=== PATIENT | female | born 1990 | race Two or more races ===

== ENCOUNTER → 2016-08-12 | Outpatient (CLI) | payer OTHER ==
[~2016-08-12] VITALS: Ht 167.6 cm; Wt 63.5 kg
[~2016-08-12] MED LIST: SINCALIDE 1.27 MCG in IV NORMAL SALINE 50ML 30 ML IV ONE
--- NOTE | 2016-08-12 11:05 | RAD ---
Radionuclide hepatobiliary scan with gallbladder ejection fraction, 08/12/2016: History: Epigastric pain Following IV injection of 5.5 mCi of technetium 99m Choletec there was prompt uptake of the radionuclide from the blood stream by the liver. Activity is present in the bile ducts and gallbladder at 10 minutes. Small bowel activity develops at 35 minutes. Additional imaging of the gallbladder was then performed following IV injection of 1.3 mcg of cholecystokinin. There is good gallbladder emptying with the gallbladder ejection fraction calculated at 89%. IMPRESSION: 1. Normal radionuclide hepatobiliary scan. 2. The gallbladder ejection fraction is 89%.
== END | disposition home or self-care (01) ==
LOC: NM 08:09
PROVIDERS: ATTEND Internal Medicine Gastroenterology
DX: R10.13 Epigastric pain (principal); R11.0 Nausea
CPT/HCPCS: 78226; 96374; 96375; A9537; J2805

== ENCOUNTER → 2019-10-08 | Outpatient (CLI) | payer MEDICAID ==
[~2019-10-08] MED LIST changes: +CLONAZEPAM1 MG PO; -SINCALIDE 1.27 MCG in IV NORMAL SALINE 50ML 30 ML IV ONE
== END | disposition home or self-care (01) ==
LOC: LAB 13:26
PROVIDERS: ATTEND Obstetrics & Gynecology
DX: Z01.818 Encounter for other preprocedural examination (principal); Z11.59 Encounter for screening for other viral diseases
CPT/HCPCS: C9803; U0003; 36415

== ENCOUNTER 2019-10-11 07:55 | Observation (INO) | payer MEDICAID ==
[2019-10-11] VITALS (8 sets, daily range): BP systolic 90–107; BP diastolic 51–64
[~2019-10-11] VITALS: Ht 167.6 cm; Wt 66.0 kg
[~2019-10-11 07:55] MED LIST changes: -CLONAZEPAM1 MG PO; +HYDROmorphone 2 MG/ML VIAL IV PRN; +IV RINGERS,LACTATED 1000ML 1,000 ML IV SCH; +LIDOCAINE 1% PF 2 ML VIAL. ID PRN; +MORPHINE SULFATE 2 MG/ML VIAL. IV PRN; +ONDANSETRON PF 4 MG/2 ML VIAL. IV PRN; +PROCHLORPERAZINE 10 MG/2 ML VIAL. IV PRN; +ceFAZolin SODIUM IV Push 1 GM VIAL. IVP ONE; +fentaNYL PF VIAL 100 MCG/2 ML VIAL IV PRN
[2019-10-11] MEDS ORDERED: CLONAZEPAM1 MG PO (08:11)
[2019-10-11] MEDS ORDERED: MIDAZOLAM HCL/PF 2 MG/2 ML VIAL. ONE (08:52)
[2019-10-11] MEDS ORDERED: fentaNYL PF VIAL 100 MCG/2 ML VIAL ONE ×2 (08:52→10:22)
[2019-10-11] MEDS ORDERED: LIDOCAINE 2% PF 5 ML VIAL. ONE (08:52)
[2019-10-11] MEDS ORDERED: ONDANSETRON PF 4 MG/2 ML VIAL. ONE (08:52)
[2019-10-11] MEDS ORDERED: DEXAMETHASONE SOD PHOS 4 MG/ML VIAL ONE (08:52)
[2019-10-11] MEDS ORDERED: PROPOFOL 10 MG/ML (20ML) VIAL. IV ONE (08:52)
[2019-10-11] MEDS ORDERED: LIDOCAINE 1%/EPI 1:100,000 20 ML VIAL. ONE (09:08)
[2019-10-11] MEDS ORDERED: SEVOFLURANE 61 TO 120 MINUTES. IH ONE (09:52)
--- NOTE | 2019-10-11 10:21 | PDOC ---
BRIEF OPERATIVE NOTE Date: October 11, 2019 Pre-Op Diagnosis AMINA Post-Op Diagnosis Same Procedure Performed Suburethral Bladder Sling Surgeon Dr. Clark Knit Goods Washer Press Operator: Raj Anesthesia Type: General Blood Loss 15 ml Specimens Obtained none Findings AMINA Complications none Operative Note see dictation MATTHEW CLARK Jr, MD October 11, 2019 10:21
[2019-10-11] MEDS ORDERED: PROCHLORPERAZINE 10 MG/2 ML VIAL. ONE (10:22)
--- NOTE | 2019-10-11 10:24 | DISCH ---
DISCHARGE INSTRUCTIONS Condition on Discharge Condition on Discharge: Stable Activity After Discharge Activity Instructions for Disc: Activity as tolerated Lifting Instructions after Dis: No heavy lifting Driving Instructions after Dis: Do not drive today Diet after Discharge Diet after Discharge: Regular Contacting the DRPhylicia after DC Call your doctor for: Concerns you may have Follow-Up Follow up with: Dr. Clark in 1 week. MATTHEW CLARK Jr, MD October 11, 2019 10:24
[2019-10-11] MEDS: fentaNYL PF VIAL 100 MCG/2 ML VIAL IV PRN ×2 (10:26→10:39)
[2019-10-11] MEDS ORDERED: oxyCODONE/APAP 5/325 1 TAB TABLET PO PRN (10:30)
[2019-10-11] MEDS ORDERED: 0.9 % SODIUM CHLORIDE 10 ML DISP.SYRIN. IV PRN (10:30)
[2019-10-11] MEDS ORDERED: PROCHLORPERAZINE 10 MG/2 ML VIAL. IV PRN (10:30)
[2019-10-11] MEDS ORDERED: ZOLPIDEM 5 MG TABLET. PO PRN (10:30)
[2019-10-11] MEDS ORDERED: KETOROLAC 30 MG/ML VIAL. IV PRN (10:30)
[2019-10-11] MEDS ORDERED: diphenhydrAMINE 50 MG/ML VIAL IV PRN (10:30)
[2019-10-11] MEDS ORDERED: ONDANSETRON PF 4 MG/2 ML VIAL. IV PRN (10:30)
[2019-10-11] MEDS ORDERED: DEXTROSE 50% 25 GM / 50ML DISP.SYRIN. IV PRN (10:30)
[2019-10-11] MEDS ORDERED: diphenhydrAMINE HCL 25 MG CAPSULE PO PRN (10:30)
[2019-10-11] MEDS ORDERED: SIMETHICONE 80 MG TAB.CHEW PO PRN (10:30)
[2019-10-11] MEDS ORDERED: CALCIUM CARBONATE 500 MG TAB.CHEW PO PRN (10:30)
--- NOTE | 2019-10-11 11:06 | OP ---
DATE OF SURGERY: PREOPERATIVE DIAGNOSIS: Stress urinary incontinence. POSTOPERATIVE DIAGNOSIS: Stress urinary incontinence. PROCEDURE: Suburethral bladder sling. SURGEON: Matthew Hendrickson MD OFFSET PRESS OPERATOR: Raj. ANESTHESIA: GETA. ESTIMATED BLOOD LOSS: 50 mL. FINDINGS: Stress urinary incontinence. SUMMARY: A 29-year-old with stress urinary incontinence diagnosed in clinic requiring suburethral bladder sling placement. The patient was counseled on the risks, benefits and expectations as well as the erosion risk and voiced clear understanding to proceed. DESCRIPTION OF PROCEDURE: The patient was taken to surgery suite and placed in dorsal lithotomy position. She was prepped with Betadine solution and draped in sterile fashion. After adequate anesthesia, weighted speculum was placed vaginally. The Allis clamp was placed 1 cm below the urethral orifice, second Allis clamp was placed 3 cm below the first Allis clamp on the anterior vaginal wall mucosa. 1% lidocaine with epinephrine was injected at the groin insertion points as well as in a vertical manner between the 2 Allis clamps in the periurethral space. Scalpel was utilized to make incisions in the groin region as well as a vertical incision between the 2 Allis clamps. The anterior vaginal mucosa was dissected away from the pubovesical fascia with Metzenbaum scissors. The periurethral space was further developed with Metzenbaum scissors as well as blunt dissection all the way to the obturator foramen bilaterally. The Obtryx was then placed through the left groin insertion site and passed through the obturator foramen and guided with my index finger out through the periurethral space. The mesh was then attached and the trocar was removed in opposite fashion. Same process took place with the right side. Cystoscopy was performed with a 30-degree scope in which the bladder cavity was normal. Both ureterovesical junctions were visualized and functioning normally. The cystoscope was removed. The mesh was adjusted with a size 7 Hegar dilator to a loose fit. The exposed mesh at the skin region was excised using Metzenbaum scissors. The anterior vaginal wall mucosa was reapproximated using 2-0 Vicryl suture in an interrupted fashion. The groin incisions were reapproximated using Dermabond. Issa catheter was placed with clear yellow urine. The patient tolerated the procedure well and was taken to the recovery room in stable condition. Sponge and needle count correct x 3. MATTHEW HENDRICKSON MD DR: JOLIE/kilo JOB#: [id number] / [id number]
[2019-10-11] MEDS ORDERED: GABAPENTIN 300 MG CAPSULE. PO SCH (12:00)
--- NOTE | 2019-10-11 15:20 | NUR ---
Bladder challenge completed with 300cc sterile water instilled into the bladder through the freeman port, tubing clamped and freeman removed. Pt immediately went to the bathroom and voided 300cc of clear yellow urine.. Will notify Dr. Clark of results.
--- NOTE | 2019-10-11 16:09 | NUR ---
Discharge and follow up instructions given to pt along with a RX for Percocet. Pt denied complaints or questions at time of D/C. Pt taken out of the hospital per W/C.
== END 2019-10-11 16:05 | disposition home or self-care (01) ==
LOC: SURG 07:55 → 3 NORTH 10:57
PROVIDERS: ADMIT Obstetrics & Gynecology; ATTEND Obstetrics & Gynecology
DX: N39.3 Stress incontinence (female) (male) (principal)
CPT/HCPCS: 57288; 81025; 96374; A7015; G0378; G0379; J0690; J0780; J1100; J1200; J2250; J2405; J2704; J3010; J3490; J7030; C1771

== ENCOUNTER → 2020-10-24 | Outpatient (CLI) | payer MEDICAID ==
[2019-10-11 16:06] VITALS: BP 96/51
[~2020-10-24] MED LIST changes: +CLONAZEPAM1 MG PO; -HYDROmorphone 2 MG/ML VIAL IV PRN; -IV RINGERS,LACTATED 1000ML 1,000 ML IV SCH; -LIDOCAINE 1% PF 2 ML VIAL. ID PRN; -MORPHINE SULFATE 2 MG/ML VIAL. IV PRN; -ONDANSETRON PF 4 MG/2 ML VIAL. IV PRN; -PROCHLORPERAZINE 10 MG/2 ML VIAL. IV PRN; -ceFAZolin SODIUM IV Push 1 GM VIAL. IVP ONE; -fentaNYL PF VIAL 100 MCG/2 ML VIAL IV PRN
--- NOTE | 2020-10-24 16:18 | RAD ---
INDICATION: Reason: Pelvic and Perineal Pain; Dyspareunia / Spl. Instructions: / History: COMPARISON: None. TECHNIQUE: Grayscale and color ultrasound images uterus and adnexa. FINDINGS: Uterus: 89 x 51 x 39 mm. Intrauterine device is seen. Right Ovary: 45 x 24 x 23 mm. Left Ovary: 29 x 20 x 15 mm. Vascular flow identified to bilateral ovaries. Vaginal canal region appears slightly echogenic. Nonspecific appearance but some fatty tissue within the area or calcifications can have this appearance. IMPRESSION: * Echogenic structure at the endometrial stripe. Could be from causes such as intrauterine device. * Vascular flow seen to the ovaries. Electronically signed by: Gonsalo Gibson MD (10/24/2020 4:15 PM) [id number]
== END ==
LOC: US 14:08
PROVIDERS: ATTEND Obstetrics & Gynecology
DX: N94.10 Unspecified dyspareunia (principal)
CPT/HCPCS: 76856

== ENCOUNTER 2020-12-04 07:41 | Day surgery (SDC) | payer MEDICAID ==
[~2020-12-04] VITALS: Ht 167.6 cm; Wt 61.0 kg
[~2020-12-04 07:41] MED LIST changes: +HYDROmorphone 2 MG/ML VIAL IVP PRN; +IV RINGERS,LACTATED 1000ML 1,000 ML IV SCH; +MORPHINE SULFATE 2 MG/ML INJ. IVP PRN; +PROCHLORPERAZINE 10 MG/2 ML VIAL. IVP PRN; +ceFAZolin SODIUM IV Push 1 GM VIAL. IVP PRN; +fentaNYL PF VIAL 100 MCG/2 ML VIAL IVP PRN
[2020-12-04 08:05] VITALS: BP 107/66
[2020-12-04] MEDS ORDERED: SCOPOLAMINE 1.5MG PATCH. TD ONE (08:30)
[2020-12-04] MEDS ORDERED: fentaNYL PF VIAL 100 MCG/2 ML VIAL ONE ×2 (08:53→10:12)
[2020-12-04] MEDS ORDERED: MIDAZOLAM HCL/PF 2 MG/2 ML VIAL. ONE (08:53)
[2020-12-04] MEDS ORDERED: LIDOCAINE 1%/EPI 1:100,000 20 ML VIAL. ONE (09:06)
[2020-12-04] MEDS ORDERED: FERRIC SUBSULFATE 8 ML SOL.W.APPL TP ONE (09:06)
[2020-12-04] MEDS ORDERED: DEXAMETHASONE SOD PHOS 4 MG/ML VIAL ONE (09:30)
[2020-12-04] MEDS ORDERED: KETOROLAC 30 MG/ML VIAL. ONE (09:30)
[2020-12-04] MEDS ORDERED: ONDANSETRON PF 4 MG/2 ML VIAL. ONE (09:30)
[2020-12-04] MEDS ORDERED: PROPOFOL 10 MG/ML (20ML) VIAL. IV ONE (09:30)
[2020-12-04] MEDS ORDERED: FAMOTIDINE 20 MG/2 ML VIAL ONE (09:30)
[2020-12-04] MEDS ORDERED: LIDOCAINE 2% PF 5 ML VIAL. ONE (09:30)
[2020-12-04] MEDS ORDERED: SEVOFLURANE 31 TO 60 MINUTES. IH ONE (09:30)
--- NOTE | 2020-12-04 09:44 | PDOC ---
BRIEF OPERATIVE NOTE Date: Dec 04, 2020 Pre-Op Diagnosis BRYN 3 Post-Op Diagnosis Same Procedure Performed Cervical Cone Biopsy Surgeon Dr. Clark Anesthesia Type: General Blood Loss 5 ml Specimens Obtained anterior and posterior lip of cervix Findings BRYN 3 Complications none Operative Note see dictation MATTHEW CLARK Jr, MD Dec 04, 2020 09:44
[2020-12-04] MEDS ORDERED: OXYC1TAB15 PO (09:46)
--- NOTE | 2020-12-04 09:47 | DISCH ---
DISCHARGE INSTRUCTIONS Condition on Discharge Condition on Discharge: Stable Activity After Discharge Activity Instructions for Disc: Activity as tolerated Lifting Instructions after Dis: No heavy lifting Driving Instructions after Dis: Do not drive today Diet after Discharge Diet after Discharge: Regular Contacting the DRPhylicia after DC Call your doctor for: Concerns you may have Follow-Up Follow up with: Dr. Clark in 1-2 weeks MATTHEW CLARK Jr, MD Dec 04, 2020 09:47
--- NOTE | 2020-12-04 10:08 | OP ---
DATE OF SURGERY: 12/04/2020 PREOPERATIVE DIAGNOSIS: Cervical intraepithelial neoplasia 3. POSTOPERATIVE DIAGNOSIS: Cervical intraepithelial neoplasia 3. PROCEDURE: Cervical cone biopsy. SURGEON: Chai Clark MD. ANESTHESIA: GETA. ESTIMATED BLOOD LOSS: 5 mL. COMPLICATIONS: None. FINDINGS: BRYN 3. SUMMARY: A 30-year-old female with BRYN 3 findings on colposcopic biopsy requiring cervical cone biopsy. She was counseled on the risks, benefits and expectations and voiced clear understanding to proceed. DESCRIPTION OF PROCEDURE: The patient was taken to surgery suite and placed in dorsal lithotomy position. She was prepped with Betadine solution and draped in sterile fashion. After adequate anesthesia, curved Loki and weighted speculum were placed. Anterior lip of the cervix grasped with single tooth tenaculum. Cervix was injected with 1% lidocaine with epinephrine in a circumferential manner, 2-0 Vicryl sutures were placed at 3 o'clock and 9 o'clock position to help stabilize the cervix. The cone biopsy was performed removing a portion of the anterior lip of the cervix and posterior lip of the cervix. The remaining cervix was cauterized with Bovie cautery. The IUD strings were visualized and in place. They were not compromised. The weighted speculum and single tooth tenaculum were then removed. The patient tolerated the procedure well and was taken to recovery room in stable condition. Sponge and needle count correct x 3. JOLIE/VICKIE DR: Karly TID: [id number]
[2020-12-04] MEDS ORDERED: oxyCODONE/APAP 5/325 1 TAB TABLET PO ONE (10:15)
[2020-12-04] MEDS: fentaNYL PF VIAL 100 MCG/2 ML VIAL IVP PRN ×2 (10:16→10:26)
[2020-12-04 10:37] VITALS: BP 102/60
--- NOTE | 2020-12-08 15:09 | PATHOLOGY ---
[facility] Accession Number: [id number] . 01 Material submitted: . cervix - CERVICAL BIOPSY SUTURE AT 12 O'CLOCK. Modifiers: 12:00 . 01 Clinical history: . CERVICAL CA CERVICAL BIOPSY . 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 See comment. - Chronic cervicitis with squamous metaplasia. LBQ 12/08/2020 0946 Local . 02 Comment: The oriented portion of the cervical biopsy shows focal mild to moderate dysplasia (BRYN II). The exocervical, endocervical, and deep margins of this portion of the cervical biopsy are negative for dysplasia. One of the separate fragments of the cervical biopsy shows severe dysplasia/carcinoma in situ (BRYN III) with endocervical glandular extension. This fragment is unoriented such that it is difficult to be certain about the margins of this fragment. The case is also examined by Dr. Batres, who concurs with the diagnosis on 12/08/20. (JPM/db; 12/08/2020) . 02 Electronically signed: . Stephan Del Angel MD, Pathologist NPI- [id number] . 01 Gross description: . The specimen is received in formalin, labeled "Hummel, Arehelena and cervical biopsy" and additionally labeled per the requisition "cervical biopsy suture at 12:00". Consists of 3 rodriguez-white, irregular soft tissue fragments ranging from 1.0-2.9 cm in greatest dimension. The largest fragment appears grossly consistent with a partial LEEP specimen (including 9:00 to 3:00). The specimen is oriented with a suture designating 12:00. The mucosa appears white-rodriguez focally effaced and focally smooth. The endocervical margin is inked blue and the stromal margin is inked black. Sectioning reveals a hemorrhagic cystic structure within the 9:00 to 12:00 quadrant measuring 0.2 x 0.2 x 0.2 cm. The remaining cut surfaces appear white and rubbery. The specimen is entirely submitted as follows: A1-A2: 12:00 to 3:00 A3-A4: 9:00 to 12:00 A5: Additional fragments (MRF; 12/05/2020) MFE/MFE 12/05/20202052 Local . 02 Pathologist provided ICD-10: D06.9, N72 . 02 CPT . 681820 Specimen Comment: A courtesy copy of this report has been sent to [phone], [phone] Specimen Comment: [id number] Specimen Comment: Report sent to / DR SOLIMAN [facility]formed at: [facility] [address], [place] [id number] MD Maury Batres MD Phone: [phone] Performed at: 02 [facility] [address] [place], [place] [id number] MD Stephan Del Angel MD Phone: [phone]
== END 2020-12-04 11:05 | disposition home or self-care (01) ==
LOC: SURG 07:41
PROVIDERS: ATTEND Obstetrics & Gynecology
DX: D06.7 Carcinoma in situ of other parts of cervix (principal); N72 Inflammatory disease of cervix uteri; F41.9 Anxiety disorder, unspecified; Z87.440 Personal history of urinary (tract) infections; Z79.899 Other long term (current) drug therapy; Z98.890 Other specified postprocedural states; Z87.891 Personal history of nicotine dependence; Z88.8 Allergy status to other drugs, medicaments and biological substances
CPT/HCPCS: 57520; 81025; 87426; 88305; A4930; J0690; J1100; J1885; J2250; J2405; J2704; J3010; J3490

== ENCOUNTER → 2021-02-04 | Outpatient (CLI) | payer MEDICAID ==
[~2021-02-04] MED LIST changes: -HYDROmorphone 2 MG/ML VIAL IVP PRN; -IV RINGERS,LACTATED 1000ML 1,000 ML IV SCH; -MORPHINE SULFATE 2 MG/ML INJ. IVP PRN; +OXYC1TAB15 PO; -PROCHLORPERAZINE 10 MG/2 ML VIAL. IVP PRN; -ceFAZolin SODIUM IV Push 1 GM VIAL. IVP PRN; -fentaNYL PF VIAL 100 MCG/2 ML VIAL IVP PRN
== END ==
LOC: LAB 09:46
PROVIDERS: ATTEND Obstetrics & Gynecology
DX: Z01.812 Encounter for preprocedural laboratory examination (principal); D06.9 Carcinoma in situ of cervix, unspecified; Z20.822 Contact with and (suspected) exposure to COVID-19
CPT/HCPCS: U0003; U0005

== ENCOUNTER 2021-02-05 06:52 | Day surgery (SDC) | payer MEDICAID ==
[~2021-02-05] VITALS: Ht 167.6 cm; Wt 61.3 kg
[~2021-02-05 06:52] MED LIST changes: +HYDROmorphone 2 MG/ML VIAL IVP PRN; +IV RINGERS,LACTATED 1000ML 1,000 ML IV SCH; +PROCHLORPERAZINE 10 MG/2 ML VIAL. IVP PRN; +ceFAZolin SODIUM IV Push 1 GM VIAL. IVP PRN; +fentaNYL PF VIAL 100 MCG/2 ML VIAL IVP PRN
[2021-02-05] MEDS ORDERED: LIDOCAINE 1% Multi-Dose 20 ML VIAL. ONE (07:04)
[2021-02-05] MEDS ORDERED: FERRIC SUBSULFATE 8 ML SOL.W.APPL TP ONE ×2 (07:04→09:01)
[2021-02-05] MEDS ORDERED: ONDANSETRON PF 4 MG/2 ML VIAL. ONE (07:16)
[2021-02-05] MEDS ORDERED: PROPOFOL 10 MG/ML (20ML) VIAL. IV ONE ×2 (07:16→08:40)
[2021-02-05] MEDS ORDERED: DEXAMETHASONE SOD PHOS 4 MG/ML VIAL ONE (07:16)
[2021-02-05] MEDS ORDERED: LIDOCAINE 1% PF 5 ML VIAL. ONE (07:16)
[2021-02-05] MEDS ORDERED: fentaNYL PF VIAL 100 MCG/2 ML VIAL ONE ×2 (07:18→09:28)
[2021-02-05 07:21] VITALS: BP 102/70
[2021-02-05] MEDS ORDERED: MIDAZOLAM HCL/PF 2 MG/2 ML VIAL. ONE (08:32)
[2021-02-05] MEDS ORDERED: SEVOFLURANE 31 TO 60 MINUTES. IH ONE (09:17)
--- NOTE | 2021-02-05 09:21 | PDOC ---
BRIEF OPERATIVE NOTE Date: Feb 05, 2021 Pre-Op Diagnosis BRYN 3 Post-Op Diagnosis Same Procedure Performed Cold Knife Cervical Cone Biopsy Surgeon Dr. Clark Anesthesia Type: General Blood Loss 10 ml Specimens Obtained anterior and posterior lip of cervix Findings BRYN 3 Complications none Operative Note see dictation MATTHEW CLARK Jr, MD Feb 05, 2021 09:21
[2021-02-05] MEDS ORDERED: OXYC1TAB15 PO (09:22)
--- NOTE | 2021-02-05 09:23 | DISCH ---
DISCHARGE INSTRUCTIONS Condition on Discharge Condition on Discharge: Stable Activity After Discharge Activity Instructions for Disc: Activity as tolerated Lifting Instructions after Dis: No heavy lifting Driving Instructions after Dis: Do not drive today Diet after Discharge Diet after Discharge: Regular Contacting the DRPhylicia after DC Call your doctor for: Concerns you may have Follow-Up Follow up with: Dr. Clark in 1 week MATTHEW CLARK Jr, MD Feb 05, 2021 09:23
[2021-02-05] MEDS: fentaNYL PF VIAL 100 MCG/2 ML VIAL IVP PRN ×2 (09:32→09:40)
[2021-02-05] MEDS ORDERED: MORPHINE SULFATE 2 MG/ML INJ. ONE (09:44)
[2021-02-05] MEDS: MORPHINE SULFATE 2 MG/ML INJ. IVP PRN ×2 (09:47→09:56)
--- NOTE | 2021-02-05 09:49 | OP ---
DATE OF SURGERY: 02/05/2021 PREOPERATIVE DIAGNOSIS: Cervical intraepithelial neoplasia 3. POSTOPERATIVE DIAGNOSIS: Cervical intraepithelial neoplasia 3. PROCEDURE: Cold knife cervical cone biopsy. SURGEON: Chai Clark MD ANESTHESIA: GETA. ESTIMATED BLOOD LOSS: 10 mL COMPLICATIONS: None. FINDINGS: Cervical dysplasia/BRYN 3. SUMMARY: A 30-year-old female who had a history of BRYN 3, previous cervical cone biopsy revealed extension past the margins of the specimen. Therefore, she needed a repeat cold knife cervical cone biopsy. She was counseled on the risks, benefits and expectations and voiced clear understanding to proceed. DESCRIPTION OF PROCEDURE: The patient was taken to surgery suite and placed in dorsal lithotomy position, was prepped with Betadine solution and draped in sterile fashion. After adequate anesthesia, weighted speculum and right angle were placed vaginally. Anterior lip of the cervix grasped with single tooth tenaculum. Sutures were placed at the 3 o'clock and 9 o'clock positions for better stabilization of the cervix. Cervix was injected with 1% lidocaine with epinephrine in a circumferential manner. Cold knife cervical cone biopsy was performed removing the anterior and posterior lip of the cervix. The IUD strings were visualized and in place and without injury to the IUD strings. Bovie cautery was utilized along with Monsel solution to the cervix for hemostasis. The single tooth tenaculum, weighted speculum were then removed. The patient tolerated the procedure well and was taken to recovery room in stable condition. Sponge and needle count correct x 3. JOSIANE DR: Karly TID: [id number]
[2021-02-05] MEDS ORDERED: oxyCODONE/APAP 5/325 1 TAB TABLET PO ONE (10:00)
[2021-02-05 10:19] VITALS: BP 106/61
== END 2021-02-05 10:40 | disposition home or self-care (01) ==
LOC: SURG 06:52
PROVIDERS: ATTEND Obstetrics & Gynecology
DX: D06.9 Carcinoma in situ of cervix, unspecified (principal); F41.9 Anxiety disorder, unspecified; F17.210 Nicotine dependence, cigarettes, uncomplicated; Z87.440 Personal history of urinary (tract) infections; Z98.890 Other specified postprocedural states
CPT/HCPCS: 57520; 81025; A4930; J0690; J1100; J2250; J2270; J2405; J2704; J3010; J3490